=== PATIENT | female | born 1985 | race African-American/Black ===

== ENCOUNTER 2016-11-09 18:50 | Emergency (ER) | payer SELFPAY ==
[~2016-11-09] VITALS: Ht 154.9 cm; Wt 73.6 kg
[~2016-11-09 18:50] MED LIST: ACYC-114 PO; CHOL2000 PO; DOCU-131 PO; IBUP-1223 PO; PREN1TAB28 PO; SIME80TA14 PO; VITA1TAB19 PO
[2016-11-09 18:57] VITALS: BP 119/83
[2016-11-09] MEDS ORDERED: PROPARACAINE OPHTH 0.5%, 15ML ONE (19:15)
[2016-11-09] MEDS ORDERED: FLUORESCEIN OPHTHALMIC 1 MG STRIP ONE (19:15)
== END 2016-11-09 19:48 | disposition home or self-care (01) ==
LOC: ED 19:43
DX: H10.023 Other mucopurulent conjunctivitis, bilateral (principal); Z88.0 Allergy status to penicillin; Z88.5 Allergy status to narcotic agent; Z88.8 Allergy status to other drugs, medicaments and biological substances
CPT/HCPCS: 99283

== ENCOUNTER 2016-11-12 14:25 | Emergency (ER) | payer SELFPAY ==
[~2016-11-12] VITALS: Ht 154.9 cm; Wt 67.3 kg
[2016-11-12 16:08] VITALS: BP 110/73
== END 2016-11-12 16:10 | disposition home or self-care (01) ==
LOC: ED 16:00
DX: R21 Rash and other nonspecific skin eruption (principal); T78.40XA Allergy, unspecified, initial encounter; Z88.0 Allergy status to penicillin; Z88.5 Allergy status to narcotic agent; Z88.8 Allergy status to other drugs, medicaments and biological substances; X58.XXXA Exposure to other specified factors, initial encounter; Y92.89 Other specified places as the place of occurrence of the external cause
CPT/HCPCS: 99283; J7512

== ENCOUNTER 2017-10-05 12:42 | Emergency (ER) | payer MEDICAID ==
[~2017-10-05] VITALS: Ht 154.9 cm; Wt 64.2 kg
[2017-10-05 12:50] VITALS: BP 142/84
[2017-10-05] MEDS ORDERED: LORazepam 1MG TABLET ONE (13:53)
[2017-10-05] MEDS ORDERED: LORazepam 1MG TABLET PO ONE (14:00)
== END 2017-10-05 13:59 | disposition home or self-care (01) ==
LOC: ED 13:53
DX: F11.10 Opioid abuse, uncomplicated (principal); F41.1 Generalized anxiety disorder; F15.129 Other stimulant abuse with intoxication, unspecified; G40.909 Epilepsy, unspecified, not intractable, without status epilepticus; Z72.89 Other problems related to lifestyle; Z59.0 Homelessness; Z60.2 Problems related to living alone
CPT/HCPCS: 99281

== ENCOUNTER 2017-11-16 19:37 | Observation (INO) | payer MEDICAID ==
[~2017-11-16] VITALS: Ht 154.9 cm; Wt 58.0 kg
[2017-11-16 20:44] LABS: BASOPHILS # (AUTO) 0.09 x10^3/uL (0-0.1); BASOPHILS % (AUTO) 1 % (0-1); EOSINOPHILS # (AUTO) 0.45 x10^3/uL (0-0.4); EOSINOPHILS % (AUTO) 6 % (1-7); LYMPHOCYTES # (AUTO) 2.21 x10^3/uL (1-3.4); LYMPHOCYTES % (AUTO) 28 % (22-44); MD NO; MEAN CORPUSCULAR HGB CONC 33.9 g/dL (32.4-35.8); MEAN CORPUSCULAR VOLUME 85.5 fL (80-100); MEAN PLATELET VOLUME 8.3 fL (7.4-10.4); MONOCYTES # (AUTO) 0.55 x10^3/uL (0.2-0.8); MONOCYTES % (AUTO) 7 % (2-9); NEUTROPHILS # (AUTO) 4.64 x10^3/uL (1.8-6.8); NEUTROPHILS % (AUTO) 58 % (42-75); PLATELET COUNT 322 x10^3/uL (130-400); RED CELL DISTRIBUTION WIDTH 13.5 % (9.6-15.2)
[2017-11-16 20:52] LABS: ALBUMIN 4.2 g/dL (3.4-5.0); ANION GAP 9 mmol/L (5-15); CALCIUM 8.5 mg/dL (8.5-10.1); CHLORIDE 107 mmol/L (98-107)
[2017-11-16 20:56] LABS: ALANINE AMINOTRANSFERASE 17 U/L (12-78); ALKALINE PHOSPHATASE 52 U/L (45-117); BILIRUBIN,TOTAL 0.5 mg/dL (0.2-1.0); CREATININE 0.93 mg/dL (0.55-1.02); SALICYLATE LEVEL 2.1 mg/dL (2.8-20.0); TOTAL PROTEIN 7.7 g/dL (6.4-8.2)
[2017-11-16 20:58] LABS: ACETAMINOPHEN < 2 mcg/mL (10-30)
[2017-11-16] MEDS ORDERED: POTASSIUM CHLORIDE 20 MEQ TAB.ER.PRT PO ONE (22:00)
[2017-11-16] MEDS ORDERED: POTASSIUM CHLORIDE 20 MEQ TAB.ER.PRT ONE (22:39)
[2017-11-16] MEDS ORDERED: ZIPRASIDONE 20 MG INJ IM ONE ×2 (23:07→23:30)
[2017-11-16 23:23] LABS: AMPHETAMINE SCREEN, URINE Positive (Negative); BARBITURATE SCREEN, URINE Negative (Negative); BENZODIAZEPINE SCREEN, URINE Negative (Negative); CANNABINOID SCREEN, URINE Negative (Negative); COCAINE SCREEN, URINE Negative (Negative); HCG UR SG 1.017 (1.003-1.030); METHADONE SCREEN, URINE Negative (Negative); MICROSCOPIC NOT IND; OPIATE SCREEN, URINE Negative (Negative)
[2017-11-16 23:46] LABS: CULTURE INDICATED? NO
[2017-11-17] MEDS ORDERED: DIPHENHYDRAMINE 50 MG CAPSULE PO PRN
[2017-11-17] MEDS ORDERED: ACETAMINOPHEN 325 MG TABLET PO PRN
[2017-11-17] MEDS ORDERED: DOCUSATE 100 MG CAPSULE PO PRN
[2017-11-17 09:25] LABS: ANION GAP 8 mmol/L (5-15); CALCIUM 8.6 mg/dL (8.5-10.1); CHLORIDE 109 mmol/L (98-107); CREATININE 0.81 mg/dL (0.55-1.02)
[2017-11-17] MEDS ORDERED: ZIPRASIDONE 20MG CAPSULE PO PRN ×2 (12:00)
[2017-11-17] MEDS ORDERED: ZIPRASIDONE 20 MG INJ IM PRN ×2 (12:00)
[2017-11-17 19:30] VITALS: BP 102/66
== END 2017-11-17 20:30 ==
LOC: ED 22:46 → EDIP 23:53 → 2N 11-17 15:48
PROVIDERS: ADMIT Family Medicine; ATTEND Family Medicine
DX: F23 Brief psychotic disorder (principal); E87.6 Hypokalemia; F33.3 Major depressive disorder, recurrent, severe with psychotic symptoms; G40.909 Epilepsy, unspecified, not intractable, without status epilepticus; R45.851 Suicidal ideations; F15.10 Other stimulant abuse, uncomplicated; F41.1 Generalized anxiety disorder; F17.200 Nicotine dependence, unspecified, uncomplicated
CPT/HCPCS: 36415; 80048; 80053; 80307; 80329; 81003; 81025; 85025; 96372; 99285; G0378; J3486; G0480